=== PATIENT | male | born 1985 | race Caucasian/White ===

== ENCOUNTER 2021-12-03 10:25 | Emergency (ER) | payer MEDICAID ==
[~2021-12-03] VITALS: Ht 180.3 cm; Wt 70.5 kg
[2021-12-03 11:12] LABS: BASOPHILS % (AUTO) 0.3 % (0-1); EOSINOPHILS # (AUTO) 0.1 X10'3 (0-0.9); EOSINOPHILS % (AUTO) 0.8 % (0-6); HEMATOCRIT 49.1 % (42.0-52.0); HEMOGLOBIN 16.8 g/dl (14.0-17.9); LYMPHOCYTES # (AUTO) 2.2 X10'3 (1.1-4.8); LYMPHOCYTES % (AUTO) 19.2 % (21-51); MEAN CORPUSCULAR HGB CONC 34.2 g/dL (33.0-36.5); MEAN CORPUSCULAR VOLUME 87.8 FL (78-98); MEAN PLATELET VOLUME 8.3 FL (7.4-10.4); MONOCYTES # (AUTO) 1.3 X10'3 (0-0.9); MONOCYTES % (AUTO) 11.1 % (2-12); NEUTROPHILS # (AUTO) 7.9 X10'3 (1.8-7.7); NEUTROPHILS % (AUTO) 68.6 % (42-75); PLATELET COUNT 293 X10'3 (140-440); RED BLOOD COUNT 5.59 X10'6 (4.70-6.10); RED CELL DISTRIBUTION WIDTH 13.4 % (11.5-14.5); WHITE BLOOD COUNT 11.6 X10'3 (4.5-11.0)
[2021-12-03 11:16] LABS: ALANINE AMINOTRANSFERASE 50 U/L (12-78); ALBUMIN 4.1 G/DL (3.4-5.0); ALBUMIN/GLOBULIN RATIO 1.1 (1.1-1.5); ALKALINE PHOSPHATASE 83 IU/L (46-116); ANION GAP 8 (8-16); ASPARTATE AMINO TRANSFERASE 25 U/L (10-37); BILIRUBIN,TOTAL 0.8 MG/DL (0.1-1.0); BLOOD UREA NITROGEN 54 MG/DL (7-18); BUN/CREATININE RATIO 33.8 (5.4-32.0); CALCIUM 8.8 MG/DL (8.5-10.1); CHLORIDE 95 MMOL/L (99-107); GLUCOSE 116 MG/DL (70-104); POTASSIUM 4.4 MMOL/L (3.5-5.1); SODIUM 132 MMOL/L (135-145); TOTAL CARBON DIOXIDE 28.6 MMOL/L (24-32); TOTAL PROTEIN 7.9 G/DL (6.4-8.2); eGFR 49 ML/MIN
[2021-12-03] MEDS ORDERED: ringers solution, lacted 1,000 ML IV ONE ×2 (11:20→12:25)
--- NOTE | 2021-12-03 12:01 | NUR ---
Tom [phone] lives in [place].
[2021-12-03] MEDS ORDERED: acetaminophen 325mg tablet PO ONE (12:05)
--- NOTE | 2021-12-03 13:34 | NUR ---
PTS CALLED FOR AN UPDATE. PER PT IT IS OK TO GIVE HER INFO. INFORMED HER PT IS DOING WELL AND WE ARE WAITING FOR THE REST OF HIS LABS TO COME BACK.
[2021-12-03 13:56] LABS: CLARITY,URINE CLEAR (Clear); COLOR,URINE YELLOW (Yellow); GLUCOSE, URINE NEGATIVE (Neg); KETONES,URINE NEGATIVE (Neg); LEUKOCYTE ESTERASE ,URINE NEGATIVE (Neg); NITRITES, URINE NEGATIVE (Neg); OCCULT BLOOD,URINE NEGATIVE (Neg); PROTEIN,URINE NEGATIVE (Neg); UROBILINOGEN,URINE 0.2 E.U/dL (0.2-1.0)
[2021-12-03 14:05] LABS: UA COLLECTION TYPE CLN CATCH MIDSTREAM
[2021-12-03 15:28] VITALS: BP 110/86
== END 2021-12-03 15:17 | disposition home or self-care (01) ==
LOC: ER 10:26
DX: R07.89 Other chest pain (principal); E86.0 Dehydration; N17.9 Acute kidney failure, unspecified; R06.02 Shortness of breath; R42 Dizziness and giddiness; F12.90 Cannabis use, unspecified, uncomplicated; Z90.89 Acquired absence of other organs; Z72.0 Tobacco use
CPT/HCPCS: 36415; 71045; 80053; 81003; 83880; 84484; 85025; 85379; 93005; 96360; 96361; 99285; J7120

== ENCOUNTER 2022-01-24 13:03 | Emergency (ER) | payer MEDICAID ==
[~2022-01-24] VITALS: Ht 177.8 cm; Wt 70.0 kg
[2022-01-24 14:30] VITALS: BP 120/83
[2022-01-24] MEDS ORDERED: CefTRIAXone 250MG IM Kit w/LIDOcaine IM ONE (15:40)
[2022-01-24] MEDS ORDERED: azithromycin 250mg tablet PO ONE (15:40)
[2022-01-24] MEDS ORDERED: CefTRIAXone 500MG IM Kit w/LIDOcaine IM ONE (15:55)
== END 2022-01-24 16:28 | disposition home or self-care (01) ==
LOC: ER 13:06
DX: R36.9 Urethral discharge, unspecified (principal); N48.89 Other specified disorders of penis; F17.200 Nicotine dependence, unspecified, uncomplicated; F12.10 Cannabis abuse, uncomplicated; Z90.49 Acquired absence of other specified parts of digestive tract
CPT/HCPCS: 96372; 99283; J0696